=== PATIENT | female | born 1970 | race Two or more races ===

== ENCOUNTER 2016-10-02 21:29 | Emergency (ER) | payer OTHER ==
[~2016-10-02] VITALS: Ht 152.4 cm; Wt 72.6 kg
[~2016-10-02 21:29] MED LIST: UNOBMED
[2016-10-02] MEDS ORDERED: LORazepam 1mg tab ORAL ONE (21:30)
--- NOTE | 2016-10-02 21:40 | Emergency Room Report ---
History of Present Illness General Chief Complaint: General Complaint Source: Patient, EMS Present Illness HPI 45YOF BIBEMS for severe anxiety. Patient endorses 2 weeks intermittent bilateral L>R facial numbness, left sided facial droop when smiling, numbness to bilateral upper extremities. States history of anxiety/panic attacks. Not on medication or seeing a psychiatrist currently. States had argument with acquaintance today who was "yelling at me" which "set off" the symptoms and the anxiety. Denies chest pain, SOB, abd pain, fever/chills, headache, neck pain, urinary complaints. Denies SI, HI, AVH. Allergies: Coded Allergies: No Known Allergies (Unverified , 10/02/16) Patient History Past Medical History: psych hx Past Surgical History: none Pertinent Family History: none Social History: Denies: alcohol use, drug use, smoking Now: No Immunizations: UTD Reviewed Nursing Documentation: PMH: Agreed, PSxH: Agreed Nursing Documentation-PMH Past Medical History: Deferred Review of Systems All Other Systems: negative except mentioned in HPI Physical Exam Vital Signs Date Time Temp Pulse Resp B/P Pulse Ox O2 Delivery O2 Flow Rate FiO2 10/02/16 21:09 97.9 80 22 129/80 99 Room Air Sp02 EP Interpretation: reviewed, normal General Appearance: normal inspection, well appearing, no apparent distress, alert, GCS 15, non-toxic, other - Very anxious, wringing hands, cryung Head: normocephalic, atraumatic Eyes: bilateral eye EOMI, bilateral eye PERRL ENT: normal ENT inspection, hearing grossly normal, normal voice Neck: normal inspection, full range of motion, supple, no bony tend Cardiovascular #1: regular rate, rhythm, no edema Gastrointestinal: normal inspection, normal bowel sounds, non tender, soft, no guarding, no hernia Genitourinary: no CVA tenderness Neurologic: normal inspection, alert, oriented x3, responsive, motor strength/ tone normal, speech normal, other - Left sided facial droop on smiling Psychiatric: normal inspection, judgement/insight normal, mood/affect normal Skin: normal inspection, normal color, no rash Lymphatic: normal inspection Medical Decision Making Diagnostic Impression: Primary Impression: Facial droop Additional Impression: Anxiety ER Course CT head negative: Low suspicion for acute or subacute CVA given intermittent bilateral neuro deficits for 2 weeks Anxiety resolved with PO ativan Reassured patient Suggested alternative methods to reduce stress, anxiety PMD followup as needed Last Vital Signs Date Time Temp Pulse Resp B/P Pulse Ox O2 Delivery O2 Flow Rate FiO2 10/02/16 21:09 97.9 80 22 129/80 99 Room Air Status: improved Disposition: HOME, SELF-CARE RAMIN CAPUTO M.D. October 02, 2016 21:40
[2016-10-02] MEDS ORDERED: ATIVAN0.5 MG ORAL (22:59)
[2016-10-02 23:26] VITALS: BP 133/78
--- NOTE | 2016-10-03 12:18 | Diagnostic Imaging Report ---
Indication: Headache Technique: Contiguous 5 mm thick transaxial imaging of the head obtained in a Siemens Sensation [address] scanner. Soft tissue and bone windows generated. Total Dose length Product (DLP): [address] Dose Index Volume (CTDIvol): 70.38 mGy Comparison: none Findings: The size and configuration of the cortical sulci, basal cisterns, and ventricles are within normal limits for age. There is no mass effect, midline shift, or edema identified. There is no evidence of acute hemorrhage or abnormal intra-axial or extra-axial fluid collections. The bones and soft tissues are unremarkable. Impression: No mass effect, edema or acute bleed. The CT scanner at [facility] is accredited by the [employer] and the scans are performed using dose optimization techniques as appropriate to a performed exam including Automatic Exposure control.
== END 2016-10-02 23:28 | disposition home or self-care (01) ==
LOC: EMR 21:29
DX: R29.810 Facial weakness (principal); F41.9 Anxiety disorder, unspecified
CPT/HCPCS: 70450; 99284